=== PATIENT | female | born 1990 ===

== ENCOUNTER 2017-03-04 17:01 | Inpatient (IN) | payer MEDICAID ==
[2017-03-04 17:06] VITALS: BMI 23.9
[2017-03-04 17:40] LABS: RBC URINE 2 /hpf (0-3); URINE BACTERIA FEW (<OCC); URINE BILIRUBIN NEGATIVE (NEGATIVE); URINE BLOOD NEGATIVE (NEGATIVE); URINE COLOR Amber (YELLOW); URINE GLUCOSE (UA) NORMAL (Normal); URINE KETONE TRACE mg/dL (NEGATIVE); URINE LEUKOCYTE ESTERASE TRACE Leu/uL (Negative); URINE PROTEIN 1+ mg/dL (NEGATIVE); WBC URINE 17 /hpf (0-5)
[2017-03-04 17:41] LABS: BASO # 0.1 K/uL (0.0-0.2); EOS # 0.1 K/uL (0.0-0.7); EOS % 0.9 % (0.0-4.0); HEMATOCRIT 42.1 % (34.0-47.0); LYMPH # 2.7 K/uL (1.0-4.3); LYMPH % 29.2 % (20.0-40.0); MEAN CELL VOLUME 86.5 fL (81.0-99.0); MEAN CORPUSCULAR HEMOGLOBIN 27.8 pg (27.0-31.0); MEAN CORPUSCULAR HGB CONC 32.2 g/dL (33.0-37.0); MEAN PLATELET VOLUME 11.3 fL (7.2-11.7); MONO # 0.6 K/uL (0.0-0.8); MONO % 6.8 % (0.0-10.0); RED CELL DISTRIBUTION WIDTH 13.6 % (11.5-14.5); WHITE BLOOD COUNT 9.2 K/uL (4.8-10.8)
[2017-03-04 17:50] LABS: CHLORIDE 108 mmol/L (98-107); SODIUM 145 mmol/L (132-148)
[2017-03-04 17:51] LABS: POTASSIUM 3.4 mmol/L (3.6-5.2)
[2017-03-04 17:53] LABS: ALB/GLOB RATIO 1.2 (1.0-2.1); ALKALINE PHOSPHATASE 63 U/L (38-126); ALT/SGPT 28 U/L (9-52); AST/SGOT 31 U/L (14-36); BILIRUBIN,TOTAL 0.7 mg/dL (0.2-1.3); BLOOD UREA NITROGEN 8 mg/dL (7-17); CALCIUM 9.6 mg/dl (8.6-10.4); CARBON DIOXIDE 25 mmol/L (22-30); GFR AFRICAN-AMERICAN > 60; GLUCOSE,RANDOM 100 mg/dL (65-105); TOTAL PROTEIN 7.8 g/dL (6.3-8.3)
[2017-03-04 17:54] LABS: ALCOHOL SERUM < 10 mg/dl (0-10)
--- NOTE | 2017-03-04 17:54 | C.PDOC ---
History Of Present Illness 26 year old patient presents to the ED requesting detox from opiate use. Patient is pre-screened. Patient admits her last use was today. She last used marijuana 3 days ago and last used cocaine yesterday. Patient denies any withdrawal symptoms, suicidal or homicidal ideation. Time Seen by Provider: 03/04/17 17:20 Chief Complaint (Nursing): Substance Abuse History Per: Patient History/Exam Limitations: no limitations Onset/Duration Of Symptoms: Other Current Symptoms Are (Timing): Still Present Suicide/Self Injury Attempted (Context): None Modifying Factor(s): Marijuana, Cocaine, Other (opiates) Severity: None Pain Scale Rating Of: 0 Past Medical History Reviewed: Historical Data, Nursing Documentation, Vital Signs Vital Signs: Last Vital Signs Temp 97.7 F 03/04/17 17:06 Pulse 112 H 03/04/17 17:06 Resp 20 03/04/17 17:06 BP 145/94 H 03/04/17 17:06 Pulse Ox 96 03/04/17 18:32 - Medical History PMH: Atrial Fibrillation (During ) Family History: States: Unknown Family Hx - Social History Hx Alcohol Use: No Hx Substance Use: Yes Review Of Systems Except As Marked, All Systems Reviewed And Found Negative. Constitutional: Positive for: Other (detox) Psych: Negative for: Suicidal ideation, Other (homicidal ideation) Physical Exam - Physical Exam Appears: No Acute Distress Skin: Warm, Dry Head: Atraumatic, Normacephalic Neck: Normal ROM, Supple Chest: Symmetrical Cardiovascular: Rhythm Regular Respiratory: Normal Breath Sounds, No Rales, No Rhonchi, No Wheezing Extremity: Normal ROM Neurological/Psych: Oriented x3 Gait: Steady ED Course And Treatment - Laboratory Results Result Diagrams: 03/04/17 17:23 03/04/17 17:23 O2 Sat by Pulse Oximetry: 96 (room air) Pulse Ox Interpretation: Normal Medical Decision Making Medical Decision Making: Plan: * Labs * Crisis Evaluation Labs ordered and reviewed. In my clinical judgment patient is medically cleared and stable for psychiatric admission. telephone sex worker contacted for evaluation. 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 - Scribe Statement The provider has reviewed the documentation as recorded by the Scribe Mariel Wilson All medical record entries made by the Scribe were at my direction and personally dictated by me. I have reviewed the chart and agree that the record accurately reflects my personal performance of the history, physical exam, medical decision making, and the department course for this patient. I have also personally directed, reviewed, and agree with the discharge instructions and disposition. Decision To Admit - Pt Status Changed To: Hospital Disposition Of: Inpatient - Admit Certification Admit to Inpatient:: After my assessment, the patient will require hospitalization for at least two midnights. This is because of the severity of symptoms shown, intensity of services needed, and/or the medical risk in this patient being treated as an outpatient. - InPatient: Physician Admission Certification: I certify that this patient requires 2 or more midnights of care for the following reason:: Patient with opiate use disorder moderate, also uses other drugs to be admitted for detox, see chart - . Bed Request Type: Detox Admitting Physician: Ivonne Flor Patient Diagnosis: Opiate dependence
[2017-03-04] MEDS ORDERED: Vitamins A & D Oint UD Foilpak TOP PRN (21:20)
[2017-03-04] MEDS ORDERED: Aluminum Hydroxide/Magnesium Hydroxide Susp (30 mL) PO PRN (21:52)
[2017-03-05] MEDS ORDERED: Buprenorphine Hydrochloride 2 mg SL ONE ×2 (09:47→11:00)
--- NOTE | 2017-03-05 10:51 | PCM.PSYCH ---
Initial Psychiatric Evaluation - Initial Psychiatric Evaluation Type of Admission: Voluntary Legal Status: Capacity Chief Complaint (in patient's own words): "Detox" History of Present Illness and Precipitating Events: Patient is a 26 year old woman with 2 kids - age 5 (boy) and 7 months ( girl). She lives at her mother's house with her brother- mother is currently deployed in the . Patient's lives with his mother due to them losing their apartment. Patient's kids are in foster care. She does not work, and her is currently looking for a job as he was doing [employer] work with the [employer]. It is not clear why he could not get their children but likely b/c of his mother being on opiate painkillers and giving the patient her pills. Patient states she uses 30 mg of oxycodone 4-5 times a day for 3 years. She also admits to using 4-5 bags of heroin both intranasally and IV the past 3 weeks, as well as smoking crack for the past 3 weeks. She smokes marijuana occasionally and smokes 6-8 cigarettes a day. She takes 1 mg of xanax a day and started using that "recently". Her children are in foster care because she did not know she was until 5 months, at which point that was addicted to opiates. LUIGI has been involved in the case since the of her second child, and they were placed in foster care 3 weeks ago, leading the patient to start using other drugs. This is the patient's first detox. She has never been to rehab and has never been on maintenance medication. She is interested in IOP at [facility] in [place] upon discharge likely on Thursday, 03/09, and is interested in vivitrol injection. Psych history:depression, no admissions or laquita attempts Medical history: denies Family psych: uncles use heroin Current Medications: Active Medications Generic Name Dose Route Start Last Admin Trade Name Freq PRN Reason Stop Dose Admin Al Hydrox/Mg Hydrox/Simethicone 30 ml 03/04/17 21:52 Maalox 30 Ml PO TID PRN Indigestion / Heartburn Buprenorphine HCl 6 mg 03/05/17 11:00 Subutex SL 03/05/17 11:01 ONCE ONE Buprenorphine HCl 0 mg 03/06/17 10:00 Subutex SL 03/09/17 09:59 .TAPER DON Taper Clonidine HCl 0.1 mg 03/04/17 21:52 Catapres PO Q8 PRN COWS Score More or Equal to 5 Hydroxyzine HCl 25 mg 03/04/17 19:54 03/04/17 20:10 Atarax PO 25 mg Q6 PRN Administration Anxiety Loperamide HCl 2 mg 03/04/17 21:52 Imodium PO Q8 PRN Diarrhea Ondansetron HCl 4 mg 03/04/17 21:52 Zofran Tab PO Q8 PRN Nausea/Vomiting Trazodone HCl 50 mg 03/04/17 20:05 03/04/17 21:45 Desyrel PO 50 mg HS PRN Administration insomnia Vitamin A 1 ea 03/04/17 21:20 03/04/17 21:45 Vitamin A & D Oint Ud Foilpak TOP 1 ea BID PRN Administration Dry skin Past Psychiatric History - Past Psychiatric History Previous Treatment History: None Pertinent Medical Hx (Current Medical&Sleep Prob, Allergies): Allergies Allergy/AdvReac Type Severity Reaction Status Date / Time No Known Allergies Allergy Verified 03/04/17 17:05 No Known Home Med 03/04/17 Review of Systems - Review of Systems All systems: reviewed and no additional remarkable complaints except - Psychiatric Psychiatric: Abnormal Sleep Pattern, Anxiety, Depression. absent: Hallucinations, Homicidal Ideation, Suicidal Ideation Mental Status Examination - Personal Presentation Personal Presentation: Looks stated age - Affect Affect: Blunted - Motor Activity Motor Activity: Calm - Reliability in Providing Information Reliability in Providing Information: Fair - Speech Speech: Organized - Mood Mood: Depressed, Anxious - Formal Thought Process Formal Thought Process: No Impairment - Obsessions/Compulsions Obsessions: No Compulsions: No - Cognitive Functions Orientation: Person, Place, Situation, Time Sensorium: Alert Attention/Concentration: Attentive Estimate of Intelligence: Average Judgement: Intact, as evidence by: Insight regarding need for hospitalization Memory: Recent intact, as evidence by: Ability to recall events of the day, Remote intact, as evidenced by: Abilit to recall sig. life events - Risk Risk: Withdrawal, Diminished functioning - Strength & Assets Inventory Strength & Assets Inventory: Family support, Cooperative - Limitations Limitations: Living alone DSM 5 DX - DSM 5 DSM 5 Diagnosis: Opioid withdrawal opioid use d/o - severe Cocaine use d/o - severe Tobacco use d/o - moderate Cannabis use d/o - moderate Depressive d/o - unspecified - Recommended/Plan of Treatment Treatment Recommendations and Plan of Treatment: Opioids: -Subutex detox -As needed medications -Support and psychoeducation -Attend groups and activities -NV for abstinence and CBT for relapse prevention Cocaine: -As needed medications -Gabapentin -Support and psychoeducation -Attend groups and activities -NV for abstinence and CBT for relapse prevention Tobacco: -NV for abstinence -Patch if needed Depression: - Remeron - Support 33 min Projected ELOS: 4-5 days Prognosis: Good with treatment Discharge Plan and Discharge Criteria: No wdw sxs Refer back to IOP and Vivitrol injection - Smoking Cessation Smoking Cessation Initiated: Yes
[2017-03-06] MEDS: Buprenorphine Hydrochloride 2 mg SL SCH (10:11)
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
[2017-03-06 15:14] LABS: RBC URINE < 1 /hpf (0-3); URINE BACTERIA RARE (<OCC); URINE BILIRUBIN NEGATIVE (NEGATIVE); URINE BLOOD NEGATIVE (NEGATIVE); URINE COLOR Yellow (YELLOW); URINE GLUCOSE (UA) NORMAL (Normal); URINE KETONE NEGATIVE (NEGATIVE); URINE LEUKOCYTE ESTERASE NEG Leu/uL (Negative); URINE PROTEIN NEGATIVE (NEGATIVE); URINE UROBILINOGEN NORMAL mg/dL (0.2-1.0); WBC URINE 4 /hpf (0-5)
[2017-03-07] MEDS: Buprenorphine Hydrochloride 2 mg SL SCH (09:28)
--- NOTE | 2017-03-07 09:32 | PCM.PYCHPN ---
Psychiatric Progress Note - Psychiatric Progress Note Patient seen today, length of contact: 16 min Patient Chief Complaint: "I'm better but want to leave tomorrow" Problems Identified/Issues Discussed: The pt is seen, chart reviewed, case discussed with staff. Support given, CBT and CA used briefly No new symptoms reported, improving slowly and needs some more time No SEs from medications, risks discussed. After care discussed and she will go to [facility] but wants to leave a day early Since she is completing detox, it is OK, but still risks discussed She wants to get a ride from another female pt who is leaving tomorrow How to deal with the BF situation discussed. Medication Change: Yes (detox changes daily) Medical Record Reviewed: Yes Mental Status Examination - Cognitive Function Orientation: Person, Place, Situation, Time Memory: Intact Attention: Poor Concentration: Poor Association: WNL Fund of Knowledge: WNL - Mood Mood: Depressed, Anxious, Other (angry) - Affect Affect: Constricted - Speech Speech: Appropriate, Loud (at times) - Formal Thought Process Formal Thought Process: No Impairment - Suicidal Ideation Suicidal Ideation: No - Homicidal Ideation Homicidal Ideation: No Goal/Treatment Plan - Goal/Treatment Plan Need for Continued Stay: Discharge may exacerbated symptoms, Severe functional impairment Progress Toward Problem(s) and Goals/Treatment Plan: Opioids: -Subutex detox -As needed medications -Support and psychoeducation -Attend groups and activities -CA for abstinence and CBT for relapse prevention Cocaine: -As needed medications -Gabapentin -Support and psychoeducation -Attend groups and activities -CA for abstinence and CBT for relapse prevention Tobacco: -CA for abstinence -Patch if needed Depression / Anxiety: - Remeron - Seroquel (and prn ativan) added due to insomnia and mild agitation - Support Estimated Date of D/C: 03/08/17 If changed, why: per her request
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
[2017-03-08] MEDS: Buprenorphine Hydrochloride 2 mg SL SCH (09:06)
[2017-03-08 10:04] VITALS: BP 116/79; PULSE 68; RESP 16; TEMP 97.5; O2SAT 98
== END 2017-03-08 10:55 | disposition home or self-care (01) | DRG 745 ==
LOC: C.ER 17:01 → C.7D 18:40
PROVIDERS: ADMIT Psychiatry & Neurology Psychiatry; ATTEND Psychiatry & Neurology Psychiatry
PROC: HZ52ZZZ Individual Psychotherapy for Substance Abuse Treatment, Cognitive-Behavioral (ICD-10-PCS; principal; 2017-03-04)
PROC: HZ59ZZZ Individual Psychotherapy for Substance Abuse Treatment, Supportive (ICD-10-PCS; 2017-03-04)
PROC: HZ56ZZZ Individual Psychotherapy for Substance Abuse Treatment, Psychoeducation (ICD-10-PCS; 2017-03-04)
PROC: HZ2ZZZZ Detoxification Services for Substance Abuse Treatment (ICD-10-PCS; 2017-03-04)
PROC: HZ2ZZZZ Detoxification Services for Substance Abuse Treatment (ICD-10-PCS; 2017-03-04)
DX: F11.23 Opioid dependence with withdrawal (principal); F32.9 Major depressive disorder, single episode, unspecified; F12.90 Cannabis use, unspecified, uncomplicated; F14.90 Cocaine use, unspecified, uncomplicated; F41.9 Anxiety disorder, unspecified; F17.210 Nicotine dependence, cigarettes, uncomplicated; G47.00 Insomnia, unspecified